=== PATIENT | female | born 1960 | race African-American/Black ===

== ENCOUNTER 2024-09-04 13:10 | Emergency (ER) | payer MEDICAID ==
[~2024-09-04] VITALS: Ht 172.7 cm; Wt 70.0 kg
[2024-09-04 13:12] VITALS: BP 162/90; PULSE 90; RESP 16; TEMP 37.1; O2SAT 100
[2024-09-04] MEDS ORDERED: ACET-2708 MT (14:00)
[2024-09-04] MEDS ORDERED: LIDO-53 TP (14:00)
[2024-09-04] MEDS: KETOROLAC 30MG/ML VIAL IM ONE (14:17)
== END 2024-09-04 16:23 | disposition home or self-care (01) ==
LOC: ER 13:10
DX: G89.29 Other chronic pain (principal); M54.50 Low back pain, unspecified; E11.9 Type 2 diabetes mellitus without complications; I10 Essential (primary) hypertension; Z59.00 Homelessness unspecified; Z79.899 Other long term (current) drug therapy
CPT/HCPCS: 99283; 96372; J1885

== ENCOUNTER 2025-01-31 08:18 | Emergency (ER) | payer MEDICAID ==
[~2025-01-31] VITALS: Ht 157.5 cm; Wt 63.2 kg
[~2025-01-31 08:18] MED LIST: ACET-2708 MT; ATOR-2 PO; GABA-1180 PO; LIDO-53 TP; LOSA25TA26 PO; SERT-422 PO; TAMS-54
[2025-01-31 08:27] VITALS: O2SAT 96
[2025-01-31] MEDS: ACETAMINOPHEN 500MG TABLET PO ONE (09:00)
[2025-01-31] MEDS ORDERED: IBUP-2028 MT (09:55)
[2025-01-31 10:44] VITALS: BP 145/74; PULSE 95; RESP 16; TEMP 36.8; O2SAT 98
== END 2025-01-31 10:49 | disposition home or self-care (01) ==
LOC: ER 08:18
DX: G89.29 Other chronic pain (principal); M54.50 Low back pain, unspecified; M54.9 Dorsalgia, unspecified; E11.9 Type 2 diabetes mellitus without complications; F10.21 Alcohol dependence, in remission; I10 Essential (primary) hypertension; Z55.6 Problems related to health literacy; Z59.00 Homelessness unspecified; Z79.899 Other long term (current) drug therapy
CPT/HCPCS: 99283

== ENCOUNTER 2025-01-31 12:06 | Emergency (ER) | payer MEDICAID ==
[~2025-01-31] VITALS: Ht 154.9 cm; Wt 57.0 kg
[~2025-01-31 12:06] MED LIST changes: +IBUP-2028 MT
[2025-01-31 12:08] VITALS: O2SAT 100
[2025-01-31 12:10] VITALS: BP 133/79; PULSE 77; RESP 16; TEMP 36.7; O2SAT 98
== END 2025-01-31 15:20 | disposition home or self-care (01) ==
LOC: ER 12:32
DX: G89.29 Other chronic pain (principal); M54.9 Dorsalgia, unspecified; E11.9 Type 2 diabetes mellitus without complications; F10.21 Alcohol dependence, in remission; I10 Essential (primary) hypertension; Z59.00 Homelessness unspecified; Z79.899 Other long term (current) drug therapy; Y90.9 Presence of alcohol in blood, level not specified
CPT/HCPCS: 99283

== ENCOUNTER 2025-01-31 15:32 | Emergency (ER) | payer MEDICAID ==
[~2025-01-31] VITALS: Ht 154.9 cm; Wt 70.0 kg
[2025-01-31 15:39] VITALS: O2SAT 100
[2025-01-31] MEDS: KETOROLAC 15MG/ML VIAL IM ONE (17:15)
[2025-01-31 19:20] VITALS: BP 140/80; PULSE 82; RESP 16; O2SAT 100
== END 2025-01-31 19:22 | disposition home or self-care (01) ==
LOC: ER 15:32
DX: G89.29 Other chronic pain (principal); M54.9 Dorsalgia, unspecified; E11.9 Type 2 diabetes mellitus without complications; F10.21 Alcohol dependence, in remission; I10 Essential (primary) hypertension; Z79.899 Other long term (current) drug therapy
CPT/HCPCS: 99283; 96372; J1885

== ENCOUNTER 2025-01-31 19:32 | Emergency (ER) | payer MEDICAID ==
[~2025-01-31] VITALS: Ht 167.6 cm; Wt 70.0 kg
[2025-01-31 19:34] VITALS: BP 138/90; PULSE 93; RESP 16; TEMP 36.8; O2SAT 96
== END 2025-01-31 20:17 | disposition home or self-care (01) ==
LOC: ER 19:32
DX: G89.29 Other chronic pain (principal); M54.9 Dorsalgia, unspecified; E11.9 Type 2 diabetes mellitus without complications; I10 Essential (primary) hypertension; Z79.899 Other long term (current) drug therapy
CPT/HCPCS: 99282